=== PATIENT | female | born 1955 | race Two or more races ===

== ENCOUNTER 2021-07-02 11:15 | Emergency (ER) | payer OTHER ==
[~2021-07-02] VITALS: Ht 154.9 cm; Wt 64.4 kg
[2021-07-02] MEDS ORDERED: ADVIL PM CAPLE1 EACH (11:23)
== END 2021-07-02 16:23 | disposition home or self-care (01) ==
LOC: ER 11:15
DX: M54.50 Low back pain, unspecified (principal); I10 Essential (primary) hypertension